=== PATIENT | male | born 1960 | race African-American/Black ===

== ENCOUNTER 2020-04-26 23:30 | Inpatient (IN) | payer OTHER ==
[~2020-04-26] VITALS: Ht 172.7 cm; Wt 72.6 kg
[2020-04-27 00:50] LABS: Basophils # (auto) 0 10 ^3/uL (0-0.2); Basophils % (auto) 0.3 % (0.0-2.0); Eosinophils # (auto) 0 10 ^3/uL (0-0.8); Eosinophils % (auto) 0.1 % (0.0-7.0); Hematocrit 39.8 % (41.0-53.0); Hemoglobin 13.3 g/dL (13.5-17.5); Lymphocytes # (auto) 1.1 10 ^3/uL (0.4-5.4); Lymphocytes % (auto) 18.2 % (10.0-50.0); Mean Corpuscular Hemoglobin 28.3 pg (28.0-32.0); Mean Corpuscular Hgb Conc. 33.4 g/dL (32.0-36.0); Mean Corpuscular Volume 84.7 fL (80.0-100.0); Monocytes # (auto) 0.7 10 ^3/uL (0-1.3); Monocytes % (auto) 11.2 % (0.0-12.0); Neutrophils # (auto) 4.1 10 ^3/uL (1.6-8.6); Neutrophils % (auto) 70.2 % (37.0-80.0); Nucleated Red Blood Cells % 0.1 %; Platelet Count (auto) 369 10^3/uL (140-450); Red Cell Distribution Width 13.4 % (11.8-14.3); White Blood Cell 5.9 10^3/uL (4.4-10.8)
[2020-04-27 01:05] LABS: INR 1.81 (0.9-1.15); Partial Thromboplastin Time 42.8 sec (23.0-31.2)
[2020-04-27 01:09] LABS: Alanine Aminotransferase 78 U/L (16-61); Albumin 2.7 g/dL (3.4-5.0); Anion Gap 11 (5-15); Aspartate Aminotransferase 153 U/L (15-37); BUN/Creatinine Ratio 21.5; Blood Urea Nitrogen 32 mg/dL (7-18); Calcium 7.8 mg/dL (8.5-10.1); Carbon Dioxide 23 mmol/L (21-32); Chloride 98 mmol/L (98-107); GFR African American 62 mL/min; GFR Non-African American 51 mL/min; Glucose 122 mg/dL (74-106); Potassium 3.8 mmol/L (3.5-5.1); Sodium 132 mmol/L (136-145)
[2020-04-27 01:14] LABS: Alkaline Phosphatase 50 U/L (45-117); Bilirubin, Total 0.7 mg/dL (0.2-1.0); Total Protein 7.6 g/dL (6.4-8.2)
[2020-04-27] MEDS ORDERED: ACETAMINOPHEN/CODEINE#3 (300/30mg) TAB PO ONE (03:00)
[2020-04-27] MEDS ORDERED: DexAMETHasone SOD PHOS 10MG/1ML VIAL INJ IV ONE (03:00)
[2020-04-27] MEDS ORDERED: SODIUM CHLORIDE 0.9% 1,000 ML IV ONE (03:00)
[2020-04-27] MEDS ORDERED: DOXYCYCLINE 100MG/250ML 250 ML IV ONE (03:00)
[2020-04-27] MEDS ORDERED: IBUPROFEN 800 MG TAB PO PRN (03:30)
[2020-04-27] MEDS ORDERED: ACETAMINOPHEN 325 MG TAB PO PRN (03:30)
[2020-04-27 05:25] VITALS: BP 108/74
[2020-04-27] MEDS: LEVOTHYROXINE SODIUM 50 MCG TAB PO SCH (07:01)
[2020-04-27] MEDS: glipiZIDE 5 MG TAB PO SCH (07:05)
[2020-04-27 08:00] VITALS: BP 105/75
[2020-04-27] MEDS ORDERED: ENOXAPARIN SOD 40 MG/0.4 ML SYRINGE SC SCH (10:00)
[2020-04-27] MEDS: HCTZ 25 MG TAB PO SCH (10:00)
[2020-04-27] MEDS: LISINOPRIL 20 MG TAB PO SCH (10:00)
[2020-04-27] MEDS: methylPREDNISolone SOD SUCC 125 MG/2 ML VL IV SCH ×2 (10:37→21:55)
[2020-04-27] MEDS: cefTRIAXone 1GM/50ML D5W 50 ML IV SCH (10:37)
[2020-04-27] MEDS: ZINC SULFATE 220mg CAP or TAB PO SCH (10:38)
[2020-04-27] MEDS: ASPirin 81 mg TAB PO SCH (10:38)
[2020-04-27] MEDS: amLODIPine BESYLATE 5 MG TAB PO SCH (10:43)
[2020-04-27] MEDS: AZITHROMYCIN 250 MG TAB PO SCH (10:44)
[2020-04-27 12:00] VITALS: BP 109/79
[2020-04-27 17:00] VITALS: BP 139/84
[2020-04-27 21:52] VITALS: BP 103/76
[2020-04-27] MEDS: PHENYTOIN SODIUM 100 MG CAP PO SCH (21:56)
[2020-04-27] MEDS: ATORVASTATIN 20 MG TAB PO SCH (21:56)
[2020-04-27] MEDS: MIRTAZAPINE 30 MG TAB PO SCH (21:58)
[2020-04-28 05:00] VITALS: BP 103/76
[2020-04-28] MEDS: LEVOTHYROXINE SODIUM 50 MCG TAB PO SCH (06:14)
[2020-04-28] MEDS: glipiZIDE 5 MG TAB PO SCH (06:14)
[2020-04-28 07:48] LABS: Albumin 2.5 g/dL (3.4-5.0); Calcium 8.2 mg/dL (8.5-10.1); Potassium 4.3 mmol/L (3.5-5.1)
[2020-04-28 07:53] LABS: BUN/Creatinine Ratio 26.2; Bilirubin, Total 0.5 mg/dL (0.2-1.0); Total Protein 7.3 g/dL (6.4-8.2)
[2020-04-28] MEDS: cefTRIAXone 1GM/50ML D5W 50 ML IV SCH (09:32)
[2020-04-28] MEDS: THIAMINE HCL 100 MG TAB PO SCH (09:32)
[2020-04-28] MEDS: ASPirin 81 mg TAB PO SCH (09:32)
[2020-04-28] MEDS: methylPREDNISolone SOD SUCC 125 MG/2 ML VL IV SCH ×2 (09:32→22:37)
[2020-04-28] MEDS: ZINC SULFATE 220mg CAP or TAB PO SCH (09:32)
[2020-04-28] MEDS: AZITHROMYCIN 250 MG TAB PO SCH (09:33)
[2020-04-28] MEDS: CHOLECALCIFEROL (VITD3) 2,000 UNIT CAP PO SCH (09:33)
[2020-04-28] MEDS: ASCORBIC ACID 500 MG TAB PO SCH ×2 (09:33→22:40)
[2020-04-28] MEDS: HCTZ 25 MG TAB PO SCH (09:34)
[2020-04-28] MEDS: amLODIPine BESYLATE 5 MG TAB PO SCH (09:35)
[2020-04-28] MEDS: LISINOPRIL 20 MG TAB PO SCH (09:35)
[2020-04-28] MEDS ORDERED: ENOXAPARIN SOD 80 MG/0.8ML SYRINGE SC SCH (10:00)
[2020-04-28 12:00] VITALS: BP 127/83
[2020-04-28 17:00] VITALS: BP 114/73
[2020-04-28 22:13] VITALS: BP 111/78
[2020-04-28] MEDS: PHENYTOIN SODIUM 100 MG CAP PO SCH (22:37)
[2020-04-28] MEDS: APIXABAN 5 MG TAB PO SCH (22:38)
[2020-04-28] MEDS: ATORVASTATIN 20 MG TAB PO SCH (22:39)
[2020-04-28] MEDS: MIRTAZAPINE 30 MG TAB PO SCH (22:41)
[2020-04-29 05:17] VITALS: BP 107/72
[2020-04-29] MEDS: glipiZIDE 5 MG TAB PO SCH (06:52)
[2020-04-29] MEDS: LEVOTHYROXINE SODIUM 50 MCG TAB PO SCH (06:52)
[2020-04-29 08:35] VITALS: BP 109/75
[2020-04-29] MEDS: ASPirin 81 mg TAB PO SCH (09:37)
[2020-04-29] MEDS: HCTZ 25 MG TAB PO SCH (09:38)
[2020-04-29] MEDS: ASCORBIC ACID 500 MG TAB PO SCH ×2 (09:38→22:11)
[2020-04-29] MEDS: APIXABAN 5 MG TAB PO SCH ×2 (09:39→22:11)
[2020-04-29] MEDS: amLODIPine BESYLATE 5 MG TAB PO SCH (09:39)
[2020-04-29] MEDS: cefTRIAXone 1GM/50ML D5W 50 ML IV SCH (09:42)
[2020-04-29] MEDS: THIAMINE HCL 100 MG TAB PO SCH (09:42)
[2020-04-29] MEDS: methylPREDNISolone SOD SUCC 125 MG/2 ML VL IV SCH ×2 (09:42→22:11)
[2020-04-29] MEDS: ZINC SULFATE 220mg CAP or TAB PO SCH (09:42)
[2020-04-29] MEDS: LISINOPRIL 20 MG TAB PO SCH (09:43)
[2020-04-29 12:24] VITALS: BP 111/82
[2020-04-29] MEDS: CHOLECALCIFEROL (VITD3) 2,000 UNIT CAP PO SCH (13:50)
[2020-04-29] MEDS: AZITHROMYCIN 250 MG TAB PO SCH (13:51)
[2020-04-29 17:43] VITALS: BP_SYST 115; BP_SYST 123; BP_DIAS 71; BP_DIAS 80
[2020-04-29 22:00] VITALS: BP 124/88
[2020-04-29] MEDS: ATORVASTATIN 20 MG TAB PO SCH (22:10)
[2020-04-29] MEDS: PHENYTOIN SODIUM 100 MG CAP PO SCH (22:10)
[2020-04-29] MEDS: MIRTAZAPINE 30 MG TAB PO SCH (22:11)
[2020-04-30 05:00] VITALS: BP 118/77
[2020-04-30] MEDS: LEVOTHYROXINE SODIUM 50 MCG TAB PO SCH (06:30)
[2020-04-30] MEDS: glipiZIDE 5 MG TAB PO SCH (06:37)
[2020-04-30 09:00] VITALS: BP 112/79
[2020-04-30] MEDS: ASPirin 81 mg TAB PO SCH (09:20)
[2020-04-30] MEDS: cefTRIAXone 1GM/50ML D5W 50 ML IV SCH (09:20)
[2020-04-30] MEDS: THIAMINE HCL 100 MG TAB PO SCH (09:20)
[2020-04-30] MEDS: HCTZ 25 MG TAB PO SCH (09:21)
[2020-04-30] MEDS: methylPREDNISolone SOD SUCC 125 MG/2 ML VL IV SCH ×2 (09:21→21:44)
[2020-04-30] MEDS: amLODIPine BESYLATE 5 MG TAB PO SCH (09:21)
[2020-04-30] MEDS: ZINC SULFATE 220mg CAP or TAB PO SCH (09:21)
[2020-04-30] MEDS: APIXABAN 5 MG TAB PO SCH (09:21)
[2020-04-30] MEDS: LISINOPRIL 20 MG TAB PO SCH (09:22)
[2020-04-30] MEDS: AZITHROMYCIN 250 MG TAB PO SCH (09:22)
[2020-04-30] MEDS: CHOLECALCIFEROL (VITD3) 1,000UNIT=25mCg TAB PO SCH (09:22)
[2020-04-30] MEDS: ASCORBIC ACID 500 MG TAB PO SCH ×2 (09:22→21:45)
[2020-04-30 13:00] VITALS: BP 119/77
[2020-04-30] MEDS ORDERED: IOHEXOL 350 MG/ML 100ML IJ ONE (13:16)
[2020-04-30 17:00] VITALS: BP 108/75
[2020-04-30] MEDS: ATORVASTATIN 20 MG TAB PO SCH (21:45)
[2020-04-30] MEDS: PHENYTOIN SODIUM 100 MG CAP PO SCH (21:45)
[2020-04-30] MEDS: MIRTAZAPINE 30 MG TAB PO SCH (21:45)
[2020-04-30 22:00] VITALS: BP 117/85
[2020-04-30] MEDS ORDERED: LINEZOLID 600MG/300ML 300 ML IV SCH (22:00)
[2020-04-30] MEDS ORDERED: MUPIROCIN 2% OINT 15gm or 22gm EACHNOSTRI SCH (22:00)
[2020-05-01 05:00] VITALS: BP 115/79
[2020-05-01] MEDS: LEVOTHYROXINE SODIUM 50 MCG TAB PO SCH (06:48)
[2020-05-01] MEDS: glipiZIDE 5 MG TAB PO SCH (06:48)
[2020-05-01 09:00] VITALS: BP 112/76
[2020-05-01] MEDS ORDERED: ENOXAPARIN SOD 40 MG/0.4 ML SYRINGE SC SCH (10:00)
[2020-05-01] MEDS: CHOLECALCIFEROL (VITD3) 1,000UNIT=25mCg TAB PO SCH (10:41)
[2020-05-01] MEDS: cefTRIAXone 1GM/50ML D5W 50 ML IV SCH (10:42)
[2020-05-01] MEDS: ASPirin 81 mg TAB PO SCH (10:43)
[2020-05-01] MEDS: methylPREDNISolone SOD SUCC 125 MG/2 ML VL IV SCH (10:43)
[2020-05-01] MEDS: THIAMINE HCL 100 MG TAB PO SCH (10:44)
[2020-05-01] MEDS: ZINC SULFATE 220mg CAP or TAB PO SCH (10:44)
[2020-05-01] MEDS: HCTZ 25 MG TAB PO SCH (10:44)
[2020-05-01] MEDS: AZITHROMYCIN 250 MG TAB PO SCH (10:45)
[2020-05-01] MEDS: ASCORBIC ACID 500 MG TAB PO SCH (10:45)
[2020-05-01] MEDS: amLODIPine BESYLATE 5 MG TAB PO SCH (10:45)
[2020-05-01] MEDS: LISINOPRIL 20 MG TAB PO SCH (10:46)
[2020-05-01 12:37] VITALS: BP 108/81
[2020-05-01] MEDS ORDERED: PRED20TA2 PO (13:05)
[2020-05-01] MEDS ORDERED: AZIT250T9 PO (13:05)
[2020-05-01 14:13] VITALS: BP 112/76
== END 2020-05-01 15:00 | DRG 177 ==
LOC: EDBD 23:30 → ER 23:33 → EEVIPCON 23:33 → OVERFLOW 23:34 → EAST 04-27 05:25 → WEST WING 04-29 21:01
PROVIDERS: ADMIT Internal Medicine; ATTEND Internal Medicine
DX: U07.1 COVID-19 (principal); J12.89 Other viral pneumonia; J96.01 Acute respiratory failure with hypoxia; E11.9 Type 2 diabetes mellitus without complications; E78.5 Hyperlipidemia, unspecified; I10 Essential (primary) hypertension; Z83.3 Family history of diabetes mellitus
CPT/HCPCS: 36415; 71045; 71275; 80053; 82728; 82962; 83605; 84443; 84484; 85025; 85379; 85610; 85730; 87040; 93005; 93970; 94760; G0378; J0696; J1100; J3490; J7042